=== PATIENT | female | born 1945 | race Caucasian/White ===

== ENCOUNTER 2023-12-14 07:00 | Outpatient (CLI) | payer MEDICARE ==
--- NOTE | 2023-12-14 11:12 | XRAY Report ---
PROCEDURE: Forearm RT INDICATIONS: RIGHT ARM PAIN/CELLULITIS/FB TECHNIQUE: 2 views of the forearm were acquired. COMPARISON: None. FINDINGS: Bones: No fractures or dislocations. No suspicious bony lesions. Soft tissues: No suspicious soft tissue calcifications or masses. IMPRESSION: No acute bony abnormality. No radiopaque foreign bodies. Reviewed by: Dino Fields MD on 12/14/2023 11:10 AM PDT Approved by: Dino Fields MD on 12/14/2023 11:10 AM PDT Station ID: [id number]
== END 2023-12-14 23:59 | disposition home or self-care (01) ==
LOC: DI.S 07:00
PROVIDERS: ATTEND Registered Nurse
DX: L03.90 Cellulitis, unspecified (principal); M79.601 Pain in right arm
CPT/HCPCS: 87070; 87205